=== PATIENT | male | born 1970 | race Two or more races ===

== ENCOUNTER 2022-02-19 20:14 | Emergency (ER) | payer OTHER ==
[~2022-02-19] VITALS: Ht 170.2 cm; Wt 70.3 kg
--- NOTE | 2022-02-19 21:50 | NUR ---
Dr Bruno into re eval patient.
--- NOTE | 2022-02-19 21:59 | NUR ---
Patient discharged to in stable condition under [employer] custody. Written and verbal after care instructions given. Patient/[employer] verbalizes understanding of instructions. Stressed follow up or return to ER for worsening s/s.
[2022-02-19 22:00] VITALS: BP 139/77
== END 2022-02-19 22:00 ==
LOC: ER 20:21
DX: R05.9 Cough, unspecified (principal); Z20.822 Contact with and (suspected) exposure to COVID-19
CPT/HCPCS: A4663